=== PATIENT | female | born 2005 | race Caucasian/White ===

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

== ENCOUNTER 2025-03-15 10:17 | Outpatient (AMB) | payer OTHER, SELFPAY ==
--- NOTE | 2025-03-15 10:30 | A.OFFVIS_ITS ---
Vital Signs 03/15/25 10:31 Height 5 ft 5 in Weight 163 lb BMI 27.1 BP 100/80 Blood Pressure Location Lt brachial Position Sitting Pulse 80 Pulse Source Pulse Oximeter Pulse Oximetry (%) 99 Oxygen Delivery Method Room Air Intake Visit Reasons: follow up Intake Note: Patient presents for follow up for migraines. Volumetric Weigher Required: No Accompanied by: Self / Same As Patient Allergies amoxicillin Allergy (Mild, Verified 03/15/25 10:35) Rash Medication List - Last Reconciled 03/15/25 by RUBEN Oquendo acetazolamide 125 - 250 mg (1 - 2 x 125 mg) PO Q12H PRN 7 days gabapentin 200 mg (2 x 100 mg) PO TID 90 days galcanezumab-gnlm (Emgality Pen) 120 mg subcut Q30D 90 days linaclotide (Linzess) 145 mcg PO DAILY magnesium oxide 400 mg PO BEDTIME 90 days naratriptan take 1/2 - 1 tab at onset of headache; if no relief may repeat 1 tab after at least 4 hrs; max = 2 tabs/24 hrs orally PRN; 30 days norethindrone acetate 5 mg PO DAILY riboflavin (vitamin B2) 400 mg PO DAILY 90 days HPI Comments Details: Right-handed 20-yr-old female presents for follow-up visit for migraine. Pt denies any significant interval changes. He states since she started Emgality she is having significantly ess migraine attacks per month, now just couple towards the end of her Emgality injection cycle. She is tolerating her Emgality injections well. Has had a few issues with feeling her Emgality, as her insurance has changed weather HGB filled locally or mail-order and then wanted to change from 30 to a 90 day order.. She would like to discuss weaning off of gabapentin if possible, as she feels that she is sleepier than most people and has been gaining weight. Unfortunately, she did not tolerate sumatriptan cut bilateral jaw trismus which lasted about 30 minutes. This made her nervous, as she has a history of TMJ dysfunction and nocturia. She is using her mouth guard regularly. She did PT for TMJ dysfunction in high school, and does still do some of the exercises as needed with effect. She does note, that her parents have moved to [facility], and she travels to see them 2 to 3 times a year, but the air travel exacerbates her migraine- she is not sure if this is due to air travel or to the noise level. 06/28/2024, Initial HPI: Pt reports she has had bothersome migraine at age 14, and has continued to have bothersome migraine w/ aura. PMH and ROS are notable for:? CV disease: Has had a couple of episodes of vaso-vagal syncope r/t anxiety r/t healthcare- has passed out at PT, visiting her grandmother in the hospital, and w/ blood draws if sitting up. 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 Family planning: None Family history of migraine or other headache disorder: Mother and maternal aunt and grandmother. Pertinent denials include: Musculoskeletal disorders or injury, History of concussion/head injury, Mood d/o, Sleep d/o, Respiratory d/o, Clotting or hematology d/o, Endocrine d/o, me tabolic d/o, History of seizure, GI d/o, Constipation, Leg Cramps, Lifestyle considerations: Sleep routine: Usual bedtime: 9pm and wake-up time: 5am Sleep difficulties: Denies, but does endorse Bruxism and wears a mouth guard Caffeine use: 2-3 cups of coffee or green tea on Thu- day of classes. Substance use: Denies Exercise:?Row and wt train 8 x's per week. 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 Age/time of onset: 14 Preceding causes: None Previous work-up: MRI brain- in high school- believes was normal Types of headache disorders: 1 Typical headache characteristics: Prodrome symptoms: Denies Aura: Visual auras- looks like TV static pulled down over both eyes lasts 30-60 min. Pain intensity: moderate-severe Location, quality, characteristics: Unilateral (either right or left, but mostly right) pressure, top of neck tightness/pain. Associated symptoms: photophobia, nausea, rarely vomiting, occasionally external spinning dizziness/feeling off-balance, fatigue, cognitive difficulties, occasional word slurring and difficulty recalling words, activity intolerance, rarely right eye may drift. Denies associated diplopia, red/watery eyes, weakness, numbness/tingling. Postdrome: Sometimes lingering headaches Triggers: Denies known triggers. Time of day: More often in the afternoon, but sometimes wakes up in bed w/ a headache. Duration and Frequency: 2 attacks per week, can last hours to a couple of days. How does headache impact your life? Sometimes misses her personal activities Current acute medication use/interventions: Excedrin 2 tabs, Ibuprofen 3 tabs, Tylenol 2 tabs, may repeat at lower dose- effect varies, Excedrin works best. Current preventative medication use: Gabapentin 300mg TID has helped some- tolerating ok. Non-pharmacological interventions: Heat- not sure if it helps. [facility] Medical History (Updated 03/15/25 @ 11:19 by RUBEN Oquendo) Syncope Migraine Constipation Anxiety Surgical History Hx of colonoscopy Family History Maternal Grandfather Heart disease Social History Alcohol intake: never Patient Tobacco Use Status: Never used Tobacco Physical Exam Vital Signs: Last Vital Signs Pulse 80 03/15/25 10:31 BP 100/80 03/15/25 10:31 Pulse Ox 99 03/15/25 10:31 Oxygen Delivery Method Room Air 03/15/25 10:31 BMI result Body Mass Index 27.1 Const Orientation/consciousness: patient oriented x3 Resp Effort & Inspection: normal respiratory effort and able to speak in complete sentences Neuro General: patient oriented x3 Cranial nerves: Yes CN's II-XII intact bilaterally Cognition (Neuro): normal cognition Gait exam (Neuro): Normal gait present Motor exam (neuro): 5/5 motor strength present throughout Psych Appearance: grossly normal Mental Status: mental status grossly normal Speech and movement: Normal speech and movement present Affect: normal affect Attitude: cooperative Thought process: Normal thought process present Assessment & Plan Assessment & Plan (1) Migraine with aura: Code(s): G43.109 - Migraine with aura, not intractable, without status migrainosus Category: Medical Qualifiers: Intractability: not intractable Status migrainosus presence: without status migrainosus Qualified Code(s): G43.109 - Migraine with aura, not intractable, without status migrainosus (2) TMJ dysfunction: Code(s): M26.609 - Unspecified temporomandibular joint disorder, unspecified side Category: Medical Plan For overall headache management: * Optimize good self-care, including but not limited to maintaining a healthy diet, adequate fluid intake, adequate sleep, and engaging in regular physical activity. * Track headaches, especially after any treatment regimen changes. [employer] is one of many headache tracking apps. * Information shared on non-pharmacological interventions which may help to alleviate headache attack burden. * Continue to wear mouth guard for bruxism. * May benefit from trying a TMJ massager tool- such as small [place] Neuro Ball. Future considerations- HST to assess for sleep apnea, PT for bruxism/TMJ. For acute headache treatment: Discussed importance of taking acute medications at the first sign of headache, however stressed importance of avoiding acute medication overuse (especially with combined headache medications). Discontinue Sumatriptan 100mg tab order- caused bilateral trismus. Trial Naratriptan 2.5mg tab, 1/2 - 1 tab (1.25-2.5mg) at onset of headache, may repeat in 4 hours. Max of 2 tabs (5mg) per 24 hours. May adjunct with OTC Tylenol 650mg every 4 hours, Ibuprofen (liquigel) 600mg every 6 hours, or Naproxen (liquigel) 440mg every 12 hrs as needed. Potential adverse effects of triptans, include but are not limited to nausea, fatigue, chest tightness/tingling (usually passes within a few minutes), medication overuse headaches. Previous acute migraine medication trials: Sumatriptan- not tolerated cause bilateral trismus. Acute migraine medication contraindications: None at this time For headache prevention medication: Preventative medications should be taken routinely as prescribed for best effect, it may take several weeks for full effect to take effect. Continue Riboflavin 400mg qam Continue Magnesium 400mg qhs Continue Emgality 120mg/ml auto-injection: Maintenance dose 120mg (120mg/ml autoinjector) subcutaneous injection every month- as patient has had greater than 50% reduction in monthly migraine days with the use. May trial weaning of Gabapentin- decrease from 300mg TID to 200mg tid x's 1 months, then 100mg tid x's 1 month, then slowly decrease by 1 cap per day, then stop. Migraine prevention medication contraindications: None at this time yes For migraine triggered by air travel: Trial Azetazolamide 125mg cap- 1-2 caps bid starting 2-3 days before air travel through day of air travel. Reviewed common s/e's- including transient paresthesias, urinary frequency. Trial noise cancellation devices, such as loop earplugs. Will follow-up in clinic in 6 months or sooner prn. Medications: New naratriptan take 1/2 - 1 tab at onset of headache; if no relief may repeat 1 tab after at least 4 hrs; max = 2 tabs/24 hrs orally PRN; 12 tabs 6RF migraine he adache 30 days gabapentin 200 mg (2 x 100 mg) PO TID 540 caps 0RF 90 days acetazolamide starting 1-2 days prior to air travel and day of air travel. 125 - 250 mg (1 - 2 x 125 mg) PO Q12H PRN 28 tabs 1RF air travel/migaraine 7 days Changed From galcanezumab-gnlm (Emgality Pen) maintenance dose of 120 mg subcu q.month. 120 mg subcut ONCE 30 days 3 mL 3RF To galcanezumab-gnlm (Emgality Pen) maintenance dose of 120 mg subcu q.month. 120 mg subcut Q30D 3 mL 3RF 90 days From magnesium oxide may hold for loose stools 400 mg PO BEDTIME 30 days 30 tabs 6RF To magnesium oxide may hold for loose stools 400 mg PO BEDTIME 90 tabs 3RF 90 days Refilled riboflavin (vitamin B2) 400 mg PO DAILY 90 tabs 3RF 90 days Discontinued sumatriptan succinate Discontinued Reason: Doctor's Order (0.5 - 1 x 100 mg) 50 - 100 mg orally at onset of headache, may repeat in 2 hrs PRN; max 2 tabs per day or 4 tabs/week (may take with Ibuprofen) 30 days 12 tabs 6RF migraine headache gabapentin Early refill permitted due to upcoming international travel Discontinued Reason: Doctor's Order 300 mg PO TID 90 days 270 caps 1RF Coding Level of Care Code Est Pt Level 4 (67204) Diagnoses Migraine with aura and without status migrainosus, not intractable G43.109 Intractability: not intractable Status migrainosus presence: without status migrainosus TMJ dysfunction M26.609
[2025-03-15 10:31] VITALS: BP 100/80; PULSE 80; O2SAT 99; BMI 27.1
== END 2025-03-15 11:16 | disposition home or self-care (01) ==
LOC: HO.HSMS 10:18
PROVIDERS: PCP Nurse Practitioner Family; Visit Provider Nurse Practitioner Family
DX: G43.109 Migraine with aura, not intractable, without status migrainosus (principal); M26.609 Unspecified temporomandibular joint disorder, unspecified side
CPT/HCPCS: 99214

== ENCOUNTER 2025-09-15 08:20 | Outpatient (AMB) | payer OTHER, SELFPAY ==
[2025-09-15 08:31] VITALS: BP 120/84; PULSE 91; O2SAT 100; BMI 27.5
--- NOTE | 2025-09-15 08:31 | A.OFFVIS_ITS ---
Vital Signs 09/15/25 08:31 Height 5 ft 5 in Weight 165 lb BMI 27.5 BP 120/84 Blood Pressure Location Rt brachial Position Sitting Pulse 91 Pulse Source Pulse Oximeter Pulse Oximetry (%) 100 Oxygen Delivery Method Room Air Intake Visit Reasons: 6m follow up- Appt confirmed Intake Note: Patient presents for follow up for migraines. 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 Accompanied by: Self / Same As Patient Allergies amoxicillin Allergy (Mild, Verified 03/15/25 10:35) Rash Medication List - Last Reconciled 09/15/25 by RUBEN Oquendo acetazolamide 125 - 250 mg (1 - 2 x 125 mg) PO Q12H PRN 7 days galcanezumab-gnlm (Emgality Pen) 120 mg subcut Q30D 90 days linaclotide (Linzess) 145 mcg PO DAILY magnesium oxide 400 mg PO BEDTIME 90 days naratriptan take 1/2 - 1 tab at onset of headache; if no relief may repeat 1 tab after at least 4 hrs; max = 2 tabs/24 hrs orally PRN; 30 days norethindrone acetate 5 mg PO DAILY riboflavin (vitamin B2) 400 mg PO DAILY 90 days zavegepant 10 mg/actuation 1 spray intranasal DAILY PRN 30 days HPI Comments Details: Right-handed 20-yr-old female presents for follow-up visit for migraine. Pt denies any significant interval changes. She notes she is prone to more headaches in the fall, and endorses seasonal allergies. 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 She reports that the migraine attack is occurring once a week typically upon awakening, and not as strong as before. She states chris naratriptan is better tolertaed, however takes a while to kick in even with taking w/ Ibuprofen. 03/15/2025, HPI: He states since she started Emgality she is having significantly ess migraine attacks per month, now just couple towards the end of her Emgality injection cycle. She is tolerating her Emgality injections well. Has had a few issues with feeling her Emgality, as her insurance has changed weather HGB filled locally or mail-order and then wanted to change from 30 to a 90 day order.. She would like to discuss weaning off of gabapentin if possible, as she feels that she is sleepier than most people and has been gaining weight. Unfortunately, she did not tolerate sumatriptan cut bilateral jaw trismus which lasted about 30 minutes. This made her nervous, as she has a history of TMJ dysfunction and nocturia. She is using her mouth guard regularly. She did PT for TMJ dysfunction in high school, and does still do some of the exercises as needed with effect. She does note, that her parents have moved to [facility], and she travels to see them 2 to 3 times a year, but the air travel exacerbates her migraine- she is not sure if this is due to air travel or to the noise level. 06/28/2024, Initial HPI: Pt reports she has had bothersome migraine at age 14, and has continued to have bothersome migraine w/ aura. PMH and ROS are notable for:? CV disease: Has had a couple of episodes of vaso-vagal syncope r/t anxiety r/t healthcare- has passed out at PT, visiting her grandmother in the hospital, and w/ blood draws if sitting up. 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 Family planning: None Family history of migraine or other headache disorder: Mother and maternal aunt and grandmother. Pertinent denials include: Musculoskeletal disorders or injury, History of concussion/head injury, Mood d/o, Sleep d/o, Respiratory d/o, Clotting or hematology d/o, Endocrine d/o, metabolic d/o, History of seizure, GI d/o, Constipation, Leg Cramps, Lifestyle considerations: Sleep routine: Usual bedtime: 9pm and wake-up time: 5am Sleep difficulties: Denies, but does endorse Bruxism and wears a mouth guard Caffeine use: 2-3 cups of coffee or green tea on Thu- day of classes. Substance use: Denies Exercise:?Row and wt train 8 x's per week. 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 Age/time of onset: 14 Preceding causes: None Previous work-up: MRI brain- in high school- believes was normal Types of headache disorders: 1 Typical headache characteristics: Prodrome symptoms: Denies Aura: Visual auras- looks like TV static pulled down over both eyes lasts 30-60 min. Pain intensity: moderate-severe Location, quality, characteristics: Unilateral (either right or left, but mostly right) pressure, top of neck tightness/pain. Associated symptoms: photophobia, nausea, rarely vomiting, occasionally external spinning dizziness/feeling off-balance, fatigue, cognitive difficulties, occ asional word slurring and difficulty recalling words, activity intolerance, rarely right eye may drift. Denies associated diplopia, red/watery eyes, weakness, numbness/tingling. Postdrome: Sometimes lingering headaches Triggers: Denies known triggers. Time of day: More often in the afternoon, but sometimes wakes up in bed w/ a headache. Duration and Frequency: 2 attacks per week, can last hours to a couple of days. How does headache impact your life? Sometimes misses her personal activities Current acute medication use/interventions: Excedrin 2 tabs, Ibuprofen 3 tabs, Tylenol 2 tabs, may repeat at lower dose- effect varies, Excedrin works best. Current preventative medication use: Gabapentin 300mg TID has helped some- tolerating ok. Non-pharmacological interventions: Heat- not sure if it helps. [facility] Medical History (Updated 03/15/25 @ 11:19 by RUBEN Oquendo) Syncope Migraine Constipation Anxiety Surgical History Hx of colonoscopy Family History Maternal Grandfather Heart disease Social History Alcohol intake: never Patient Tobacco Use Status: Never used Tobacco Physical Exam Vital Signs: Last Vital Signs Pulse 91 09/15/25 08:31 BP 120/84 09/15/25 08:31 Pulse Ox 100 09/15/25 08:31 Oxygen Delivery Method Room Air 09/15/25 08:31 BMI result Body Mass Index 27.5 Const Orientation/consciousness: patient oriented x3 Resp Effort & Inspection: normal respiratory effort and able to speak in complete sentences Neuro General: patient oriented x3 Cranial nerves: Yes CN's II-XII intact bilaterally Cognition (Neuro): normal cognition Gait exam (Neuro): Normal gait present Motor exam (neuro): 5/5 motor strength present throughout Psych Appearance: grossly normal Mental Status: mental status grossly normal Speech and movement: Normal speech and movement present Affect: normal affect Attitude: cooperative Thought process: Normal thought process present Assessment & Plan Assessment & Plan (1) Migraine with aura: Code(s): G43.109 - Migraine with aura, not intractable, without status migrainosus Category: Medical Qualifiers: Status migrainosus presence: without status migrainosus Intractability: not intractable Qualified Code(s): G43.109 - Migraine with aura, not intractable, without status migrainosus (2) TMJ dysfunction: Code(s): M26.609 - Unspecified temporomandibular joint disorder, unspecified side Category: Medical Plan For overall headache management: * Optimize good self-care, including but not limited to maintaining a healthy diet, adequate fluid intake, adequate sleep, and engaging in regular physical activity. * Track headaches, especially after any treatment regimen changes. Migraine Waterfall is one of many headache tracking apps. * Information shared on non-pharmacological interventions which may help to alleviate headache attack burden. * Continue to wear mouth guard for bruxism. * May benefit from trying a TMJ massager tool- such as small [place] Neuro Ball. Future considerations- HST to assess for sleep apnea, PT for bruxism/TMJ. For acute headache treatment: Discussed importance of taking acute medications at the first sign of headache, however stressed importance of avoiding acute medication overuse (especially with combined headache medications). Discontinue Sumatriptan 100mg tab order- caused bilateral trismus. Continue Naratriptan 2.5mg tab, 1/2 - 1 tab (1.25-2.5mg) at onset of mild migraine headache, may repeat in 4 hours. Max of 2 tabs (5mg) per 24 hours. May adjunct with OTC Tylenol 650mg every 4 hours, Ibuprofen (liquigel) 600mg every 6 hours, or Naproxen (liquigel) 440mg every 12 hrs as needed. Potential adverse effects of triptans, include but are not limited to nausea, fatigue, chest tightness/tingling (usually passes within a few minutes), medication overuse headaches. Start Zavegepant 10mg nasal spary- 1 nasal spray at onset of modertae-severe migraine a/w nausea. * Instructions for Use ? Zavegepant 10 mg Nasal [place] * Keep the nasal spray in the sealed blister package at room temperature until you are ready to use it. * Gently blow your nose. * Prepare the Device * Hold the spray upright. * With your free hand, gently press one nostril closed. * Breathing normally through your mouth, insert the nozzle into your open nostril as far as comfortable. * Then, close your mouth and slowly breathe through your nose as you press the plunger up firmly with your thumb to deliver the dose. * After delivering the dose, remove the device from your nose, release the other nostril, while breathing gently and keeping your head upright (do not tilt back or lie down) for about 10-20 seconds. * If you feel liquid in your nose, sniff gently to avoid losing the dose. * If you experience an unpleasant taste after inhaling the dose, you may take a small piece of hard candy, mint, or gum. Previous acute migraine medication trials: Sumatriptan- not tolerated cause bilateral trismus. Naratriptan not fully effective. Acute migraine medication contraindications: None at this time For headache prevention medication: Preventative medications should be taken routinely as prescribed for best effect, it may take several weeks for full effect to take effect. Continue Riboflavin 400mg qam Continue Magnesium 400mg qhs Continue Emgality 120mg/ml auto-injection: Maintenance dose 120mg (120mg/ml autoinjector) subcutaneous injection every month- as patient has had greater than 50% reduction in monthly migraine days with the use. May trial weaning of Gabapentin- decrease from 300mg TID to 200mg tid x's 1 months, then 100mg tid x's 1 month, then slowly decrease by 1 cap per day, then stop. Migraine prevention medication contraindications: None at this time yes For migraine triggered by air travel: Trial Azetazolamide 125mg cap- 1-2 caps bid starting 2-3 days before air travel through day of air travel. Reviewed common s/e's- including transient paresthesias, urinary frequency. Trial noise cancellation devices, such as loop earplugs. Pt requested printed copies of migraine prescriptions for when she travels to [facility] this holiday break to see her parents- scripts printed and given to pt. Will follow-up in clinic in 6 months or sooner prn. Medications: New zavegepant 10 mg/actuation 1 spray intranasal DAILY 30 days PRN 6 ea 6RF migraine headache G43.109 - Migraine with aura, not intractable, without status migrainosus zavegepant 10 mg/actuation 1 spray intranasal DAILY 30 days PRN 6 ea 6RF migraine headache G43.109 - Migraine with aura, not intractable, without status migrainosus zavegepant 10 mg/actuation 1 spray intranasal DAILY PRN 6 ea 6RF migraine headache 30 days G43.109 - Migraine with aura, not intractable, without status migrainosus Changed From galcanezumab-gnlm (Emgality Pen) maintenance dose of 120 mg subcu q.month. 120 mg subcut Q30D 90 days 3 mL 3RF G43.109 - Migraine with aura, not intractable, without status migrainosus To galcanezumab-gnlm (Emgality Pen) maintenance dose of 120 mg subcu q.month. 120 mg subcut Q30D 30 days 1 mL 1RF G43.109 - Migraine with aura, not intractable, without status migrainosus From galcanezumab-gnlm (Emgality Pen) maintenance dose of 120 mg subcu q.month. 120 mg subcut Q30D 30 days 1 mL 1RF G43.109 - Migraine with aura, not intractable, without status migrainosus To galcanezumab-gnlm (Emgality Pen) maintenance dose of 120 mg subcu q.month. 120 mg subcut Q30D 3 mL 4RF 90 days G43.109 - Migraine with aura, not intractable, without status migrainosus Refilled acetazolamide starting 1-2 days prior to air travel and day of air travel. 125 - 250 mg (1 - 2 x 125 mg) PO Q12H PRN 28 tabs 1RF air travel/migaraine 7 days galcanezumab-gnlm (Emgality Pen) maintenance dose of 120 mg subcu q.month. 120 mg subcut Q30D 30 days 1 mL 1RF G43.109 - Migraine with aura, not intractable, without status migrainosus naratriptan take 1/2 - 1 tab at onset of headache; if no relief may repeat 1 tab after at least 4 hrs; max = 2 tabs/24 hrs orally PRN; 12 tabs 6RF migraine headache 30 days Coding Level of Care Code Est Pt Level 4 (12783) Diagnoses Migraine with aura and without status migrainosus, not intractable G43.109 Status migrainosus presence: without status migrainosus Intractability: not intractable TMJ dysfunction M26.609
== END 2025-09-15 09:33 | disposition home or self-care (01) ==
LOC: HO.HSMS 08:21
PROVIDERS: PCP Nurse Practitioner Family; Visit Provider Nurse Practitioner Family
DX: G43.109 Migraine with aura, not intractable, without status migrainosus (principal); M26.609 Unspecified temporomandibular joint disorder, unspecified side
CPT/HCPCS: 99214